=== PATIENT | male | born 1970 | race Caucasian/White ===

== ENCOUNTER 2020-01-24 18:50 | Emergency (ER) | payer MEDICARE, SELFPAY ==
[2020-01-24 18:51] VITALS: BP 140/98; PULSE 93; RESP 17; TEMP 36.7; O2SAT 98; BMI 19.2
--- NOTE | 2020-01-24 19:19 | HMH.EDUTC ---
[facility] [place] Clinical Impression: Urticaria Disposition: Home, Self-Care Condition on Discharge: Good Instructions: DI for Hives, Hives, DI for General Allergic Reactions Additional Instructions: Over the counter Benadryl may help with itching *GO home look around and see if anything has changed such as soaps, laundry detergent etc or what may be around your house that you may have got into that you could be having a reaction too Start taking oral steriods tomorrow Return if needed Follow up with family doctor in the next 48-72 hours or immediately if no improvement or any worsening of symptoms Straight to ER if any life threatening symptoms Prescriptions: methylPREDNISolone [Medrol 4mg tab] 4 mg PO DIRECTED #21 tab Transmission Status: Pending to [id number] Referrals: Selvin Tellez MD [Primary Care Provider] - As needed Time of Disposition: 19:39 Medical Decision Making - Shaun Inquiry Pt receiving controlled substance: No Shaun was queried for this patient: No Vital Signs: 01/24/20 18:51 Temperature 98.1 F Temperature Source Oral Pulse Rate [Radial] 93 H Respiratory Rate 17 Blood Pressure [Right Arm] 140/98 H Blood Pressure Mean [Right Arm] 112 Blood Pressure Source [Right Arm] Automatic Cuff Blood Pressure Position [Right Arm] Sitting 02 Sat by Pulse Oximetry 98 Oxygen Delivery Method Room Air Orders (Tests/Meds): ED MEDICATIONS Discontinued Medications Generic Name Dose Route Start Last Admin Trade Name Freq PRN Reason Stop Dose Admin Diphenhydramine HCl 25 mg 01/24/20 19:20 01/24/20 19:25 Benadryl 25mg Capsule PO 01/24/20 19:21 25 mg ONCE ONE Administration Loratadine 10 mg 01/24/20 19:21 01/24/20 19:26 Claritin 10mg Tablet PO 01/24/20 19:22 10 mg ONCE ONE Administration Methylprednisolone Sodium Succinate 125 mg 01/24/20 19:20 01/24/20 19:26 Solu-Medrol 125mg/2ml Vial IM 01/24/20 19:21 125 mg ONCE ONE Administration [facility] [place] - General Stated complaint: rash Time Seen by Provider: 01/24/20 19:19 Mode of Arrival: Ambulatory Source of Information: Patient Limitations: No Limitations Description of Symptoms (Recalled from Triage Doc. by RN): RASH ON SIDE HEENT Symptoms (Recalled from RN notes): No Resp Symptoms (Recalled from RN notes): No Skin Symptoms (Recalled from RN notes): Yes MS Symptoms (Recalled from RN notes): No Functional Status (Recalled from RN notes): WNL - History of Present Illness Provider Complaint: Patient states that he started breaking out in rash around his waistline and abdomen, chest, back and upper arms State that rash has continued to get worse State that he hasnt changed anything that he is aware of and unsure if he may have got into something that he is allergic too - Related Data Previous Rx's Medication Instructions Recorded methylPREDNISolone [Medrol 4mg 4 mg PO DIRECTED #21 tab 01/24/20 tab] Allergies Allergy/AdvReac Type Severity Reaction Status Date / Time No Known Allergies Allergy Verified 01/24/20 19:18 - Worker's Comp Is this a Worker's Comp case?: No [facility] History - Hepatitis A Screen Drug use history?: No High risk sexual behaviors?: No History of sexually transmitted infection?: No Currently employed?: No Childcare worker?: No Do you have indoor plumbing?: Yes Do you have electricity?: Yes Attestation statement:: This patient has been screened for Hepatitis A risk factors. I have reviewed the patient's past medical history: Yes - Social History Educational Level: Completed High School Smoking Status: Current every day smoker Tobacco Type: cigarettes # Packs/Day (cigarettes): 1 Alcohol Intake: never Occupational Status: other Housing: house ROS Obtained: Yes All systems reviewed & no additional complaints, Yes Systems reviewed as appropriate & no additional complaints - Integumentary/Breasts Skin/Breast: Reports rash Physical Exam
[2020-01-24 19:48] VITALS: BP 140/98; PULSE 93; RESP 17; TEMP 36.7; O2SAT 98
== END 2020-01-24 19:49 | disposition home or self-care (01) ==
PROVIDERS: Emergency Provider Nurse Practitioner; PCP Family Medicine
DX: L50.9 Urticaria, unspecified (principal); F17.210 Nicotine dependence, cigarettes, uncomplicated
CPT/HCPCS: 96372; 99201

== ENCOUNTER 2020-01-26 02:44 | Emergency (ER) | payer MEDICARE, SELFPAY ==
[2020-01-26 02:45] VITALS: BP 146/92; PULSE 102; RESP 16; TEMP 36.9; O2SAT 96; BMI 19.2
--- NOTE | 2020-01-26 02:47 | PC.NURSE ---
speaking with Dr. Bashir at [place].
--- NOTE | 2020-01-26 03:32 | HMH.EDPSYCH ---
ED Disposition Clinical Impression: Acute psychosis Disposition: Home, Self-Care Condition on Discharge: Good Prescriptions: Quetiapine Fumarate [Seroquel] 400 mg PO HS 30 Days #30 tab Transmission Status: Pending to [id number] Referrals: Selvin Tellez MD [Primary Care Provider] - - Critical Care Critical Care Time: No Attestation: On 01/26/20, the high probability of a clinically significant, sudden or life threatening deterioration of the following system(s) required my full and direct attention, intervention and personal management. The time I documented below is in addition to time spent performing reported procedures but includes the following listed in this critical care notation. Medical Decision Making - Medical Records Medical records reviewed: Yes: I reviewed the patient's medical records. - Shaun Inquiry Pt receiving controlled substance: No Vital Signs: 01/26/20 02:45 Temperature 98.4 F Temperature Source Oral Pulse Rate [Left Radial] 102 H Respiratory Rate 16 Blood Pressure [Right Arm] 146/92 H Blood Pressure Mean [Right Arm] 110 Blood Pressure Source [Right Arm] Automatic Cuff Blood Pressure Position [Right Arm] Sitting 02 Sat by Pulse Oximetry 96 Oxygen Delivery Method Room Air - Lab Data Lab results reviewed: Yes: I reviewed the patient's lab results. Orders (Tests/Meds): ED MEDICATIONS Discontinued Medications Generic Name Dose Route Start Last Admin Trade Name Kendrickq PRN Reason Stop Dose Admin Haloperidol Lactate 5 mg 01/26/20 03:03 01/26/20 03:05 Haldol 5mg/Ml Vial IM 01/26/20 03:04 5 mg ONCE ONE Administration Psych HPI - General Chief Complaint: Psychiatric Symptoms Stated Complaint: Mental brake down Time Seen by Provider: 01/26/20 03:00 Mode of Arrival: Ambulatory Source of Information: Patient Description of Symptoms (Recalled from ER Triage Doc. by RN): pt stated im having a mental break down when asked to further explain pt stated he believes his family is trying to poison him but doesnt know with what. pt denies any SI or HI or auditory or visual halluciations. pt denies any pain or discomfort at this time and is calm and cooperative on assessment. - History of Present Illness HPI Narrative: 49-year-old gentleman presents the ED with unusual complaints. He states he feels like his family has been poisoning him. He really does not know what they are given MRI and he has no acute symptoms of anything. Patient does have paranoid schizophrenia and has been off his medications.Patient denies any recent cough or shortness of breath, patient denies any sore throat or headache, patient denies any loss of taste or smell, patient denies any malaise or fatigue, patient denies any abdominal pain nausea vomiting or diarrhea. - Related Data Previous Rx's Medication Instructions Recorded methylPREDNISolone [Medrol 4mg 4 mg PO DIRECTED #21 tab 01/24/20 tab] Quetiapine Fumarate [Seroquel] 400 mg PO HS 30 Days #30 tab 01/26/20 Allergies Allergy/AdvReac Type Severity Reaction Status Date / Time No Known Allergies Allergy Verified 01/24/20 19:18 [facility] History - Hepatitis A Screen Drug use history?: No High risk sexual behaviors?: No History of sexually transmitted infection?: No Currently employed?: No Childcare worker?: No Do you have indoor plumbing?: Yes Do you have electricity?: Yes Attestation statement:: This patient has been screened for Hepatitis A risk factors. I have reviewed the patient's past medical history: Yes - Social History Smoking Status: Current every day smoker Tobacco Type: cigarettes # Packs/Day (cigarettes): 2 Alcohol Intake: never Substance Use Type: marijuana Last Used Substance: days (ago) Occupational Status: disabled Housing: house ROS Obtained: Yes All systems reviewed & no additional complaints - Constitutional Constitutional: Reports system reviewed and no additiona
--- NOTE | 2020-01-26 03:37 | PC.NURSE ---
pt complained of rash on extremities. 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
[2020-01-26 03:46] VITALS: BP 150/91; PULSE 103; RESP 16; TEMP 36.8; O2SAT 95
== END 2020-01-26 03:48 | disposition home or self-care (01) ==
PROVIDERS: Emergency Provider Emergency Medicine; PCP Family Medicine
DX: F23 Brief psychotic disorder (principal); F20.0 Paranoid schizophrenia; F12.10 Cannabis abuse, uncomplicated; F17.210 Nicotine dependence, cigarettes, uncomplicated
CPT/HCPCS: 96372; 99281

== ENCOUNTER 2023-11-25 07:10 | Outpatient (CLI) | payer MEDICARE, SELFPAY ==
--- NOTE | 2023-11-25 07:15 | CT_ITS ---
FINAL REPORT TECHNIQUE: Axial images were obtained from the lung apex to the mid abdomen by computed tomography. This study was performed with techniques to keep radiation doses as low as reasonably achievable (ALARA). Individualized dose reduction techniques using automated exposure control or adjustment of mA and/or kV according to the patient's size were employed. CLINICAL HISTORY: H/O TOBACCO USE smoker 4 ppd x 44 years FINDINGS: CHEST CT LOW DOSE CTDI vol (mGy): 2.90 DLP (mGy-cm): 121.16 There is mild bilateral axillary and mediastinal adenopathy. Individual nodes measure up to 10 mm in greatest dimension, nonspecific. The heart is normal in size. There is no pericardial or pleural effusion. There is mild atelectasis in the right middle lobe and lingula. There is a subtle density in the posterior right upper lobe measuring 6 mm best visualized on image 23 of series 4. There is linear scarring in the lingula. Limited images of the upper abdomen are unremarkable. IMPRESSION: Noncalcified right upper lobe density. Modifier S: Bilateral axillary and mediastinal adenopathy. Lung RADS category 3S. Recommend 6 month follow-up low-dose chest CT. Reviewed, Interpreted and Dictated by Manuel Tang MD Transcribed by Mariela Landrum Authenticated and [facility]
== END 2023-11-25 23:59 | disposition home or self-care (01) ==
LOC: RAD 07:11
PROVIDERS: PCP Family Medicine; Visit Provider Family Medicine
DX: Z87.891 Personal history of nicotine dependence (principal); Z12.2 Encounter for screening for malignant neoplasm of respiratory organs
CPT/HCPCS: 71271

== ENCOUNTER 2024-05-17 13:07 | Outpatient (CLI) | payer MEDICARE, MEDICAID, SELFPAY ==
--- NOTE | 2024-05-17 13:11 | CT_ITS ---
FINAL REPORT CLINICAL HISTORY: Right upper lobe nodule, follow-up COMPARISON: Low-dose chest CT dated 11/25/2023 FINDINGS: CT CHEST WITHOUT CONTRAST TECHNIQUE: Axial images through the chest were performed by computed tomography without contrast. This study was performed with techniques to keep radiation doses as low as reasonably achievable, (ALARA). Individualized dose reduction techniques using automated exposure control or adjustment of mA and/or kV according to the patient's size were employed. FINDINGS: There is no axillary adenopathy. There is no hilar or mediastinal adenopathy. The heart size is normal. There is no pericardial or pleural effusion. Previously seen nodule in the posterior right upper lobe measures 6 mm and appears stable compared to the prior exam. This is best seen on image 86 of series 3. There is biapical pleural and parenchymal scarring. Limited images of the upper abdomen are unremarkable. IMPRESSION: Stable 6 mm right upper lobe nodule. 12-month follow-up chest CT is recommended. Reviewed, Interpreted and Dictated by Manuel Tang MD Transcribed by Vanessa Rich Authenticated and [facility]
== END 2024-05-17 23:59 | disposition home or self-care (01) ==
LOC: RAD 13:08
PROVIDERS: PCP Family Medicine; Visit Provider Family Medicine
DX: R91.1 Solitary pulmonary nodule (principal)
CPT/HCPCS: 71250

== ENCOUNTER 2025-04-12 12:51 | Outpatient (CLI) | payer MEDICARE, OTHER, SELFPAY ==
--- NOTE | 2025-04-12 12:55 | CT_ITS ---
FINAL REPORT TECHNIQUE: Thin section axial images were obtained through the lungs using a low-dose technique per lung cancer screening protocol. Reconstruction images were obtained using the axial data. This study was performed with techniques to keep radiation doses as low as reasonably achievable, (ALARA). Individualized dose reduction techniques using automated exposure control or adjustment of mA and/or kV according to the patient's size were employed. CLINICAL HISTORY: HX OF TOBACCO current smoker 1ppd x20 years COMPARISON: 11/25/2023 FINDINGS: CTDLvol: 2.90 DLP: 108.12 Current smoker 20 pack year history Lungs: There is a new ground glass nodular opacity in the right lower lobe measuring 9 mm on series 4 image 49. A nodular density in the posterior right upper lobe on series 4 image 20 is unchanged from the prior lung cancer screening exam. The largest nodule within this measures 6 mm and was 6 mm. There is a new mixed density opacity measuring 10 x 8 mm on series 4 image 27. There is very mild emphysema. There is evidence of prior granulomatous disease. The previously seen bilateral axillary lymphadenopathy has nearly resolved. There is no mediastinal or hilar lymphadenopathy. There is no pleural pericardial effusion. Abdomen: There is a stable hypodense lesion in the liver. No acute abnormality. IMPRESSION: New mixed density slightly nodular opacity in the right upper lobe. Lung RADS: 4A Recommendation: Recommend 3-month follow-up chest CT or PET CT. Reviewed, Interpreted and Dictated by Francesca Anderson MD Transcribed by Amie Vickers Authenticated and [facility]
--- OUTSIDE RECORDS SUMMARY | 2025-04-12 12:57 | XMS_ITS | Clinical Summary ---
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 for anxiety 90 tablet 5 11/21/2024 Active nicotine (NICODERM CQ) 21 MG/24HR patchIndication s:Cigarette smoker Place 1 patch on the skin as directed by provider Daily. 28 each 5 11/21/2024 Active OLANZapine (zyPREXA) 15 MG tabletIndicatio ns:Mood disorder Take 1 tablet by mouth Every Night. 30 tablet 11 11/21/2024 Active Active Problems Problem Noted Date Diagnosed Date Pulmonary nodule 05/20/2024 Assessment & Plan (11/21/2024 2:43 PM EDT): Orders: CT Chest Low Dose Cancer Screening WO; Future Cigarette smoker 11/17/2022 Assessment & Plan (11/21/2024 2:43 PM EDT): Orders: nicotine (NICODERM CQ) 21 MG/24HR patch; Place 1 patch on the skin as directed by provider Daily. Bipolar disorder, in full re mission, most recent episode mixed 11/17/2022 Assessment & Plan (11/21/2024 2:43 PM EDT): Anxiety 11/17/2022 Assessment & Plan (11/21/2024 2:43 PM EDT): Orders: diazePAM (VALIUM) 10 MG tablet; Take 1 tablet by mouth Every 8 (Eight) Hours As Needed for Anxiety. 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 Benefit is greater than risk at present Immunizations Immunization Administration Dates Next Due Pneumococcal Conjugate 20-Valent (PCV20) 024 Tdap 06/24/2009 Family History Medical History Relation Name Comments Cancer Father Miguelito Zimmerman Esophageal cancer Father Miguelito Zimmerman Heart attack Mother Ursula granado aneurysm per wi fe Heart disease Mother Ursula granado Relation Name Status Comments Father Miguelito Zimmerman Mother Ursula granado Social History Tobacco Use Types Packs/Day Years Used Date Smoking Tobacco: Every Day Cigarettes 2 30 Smokeless Tobacco: Never Tobacco Cessation:Ready to Q uit: No Alcohol Use Standard Drinks/Week Comments Not Currently 0 (1 standard drink = 0.6 oz pur e alcohol) PHQ-2 Answer Date Recorded Retired PHQ-9: Brief Depression Severity Measure Score 0 11/17/2022 PHQ-2 Answer Date Recorded Patient Health Questionnaire-2 Score 0 11/21/2024 Sex and Gender Information Value Date Recorded Sex Assigned at Not on file Legal Sex Male 9:36 AM EDT Gender Identity Not on file Sexual Orientation Not on file Last Filed Vital Signs Vital Sign Reading Time Taken Comments Blood Pressure 140/80 11/21/2024 2:09 PM EDT Pulse 77 11/21/2024 2:09 PM EDT Temperature 36.6 C (97.8 F) 11/21/2024 2:09 PM EDT Respiratory Rate 20 11/21/2024 2:09 PM EDT Oxygen Saturation 98% 11/21/2024 2:09 PM EDT Inhaled Oxygen Concentration - - Weight 51.7 kg (114 lb) 11/21/2024 2:09 PM EDT Height 175.3 cm (5' 9 ) 11/21/2024 2:09 PM EDT Body Mass Index 16.83 11/21/2024 2:09 PM EDT Plan of Treatment Health Maintenance Due Date Last Done Comments COLON CANCER SCREENING 5 YEA R SIGMOIDOSCOPY [address] COLONOGRAPHY 2014 FECAL OCCULT BLOOD TEST 2014 FIT Testing (1 year) 2014 LUNG CANCER SCREENING 2019 ZOSTER VACCINE (1 of 2) 2019 TDAP/TD VACCINES (2 - Td or Tdap) 06/24/2019 009 HEPATITIS C SCREENING 03/21/2022 COLOGUARD 05/10/2024 05/10/2021 COLORECTAL CANCER SCREENING 05/10/2024 COVID-19 Vaccine (2023-2 5 season) 2025 INFLUENZA VACCINE 05/03/2025 ANNUAL WELLNESS VISIT 11/21/2025 11/21/2024 , 11/21/2024, 11/20/2023, Additional history exists Pneumococcal Vaccine 50+ Completed 11/20/2023 Insurance [facility] Care Teams 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
== END 2025-04-12 23:59 | disposition home or self-care (01) ==
LOC: RAD 12:53
PROVIDERS: PCP Family Medicine; Visit Provider Family Medicine
DX: R91.8 Other nonspecific abnormal finding of lung field (principal); R91.1 Solitary pulmonary nodule; Z87.891 Personal history of nicotine dependence; Z53.20 Procedure and treatment not carried out because of patient's decision for unspecified reasons
CPT/HCPCS: 71271

== ENCOUNTER 2025-07-12 12:26 | Outpatient (CLI) | payer MEDICARE, OTHER, SELFPAY ==
[2025-07-12 13:25] VITALS: PULSE 69; PULSE 72
[2025-07-12] MEDS: ALBUTEROL 0.083% 2.5 MG/3 ML NEB IH (13:25)
--- NOTE | 2025-07-12 14:30 | CT_ITS ---
FINAL REPORT TECHNIQUE: Axial images were obtained through the chest without contrast. Sagittal and coronal multiplanar reconstructions were obtained. This study was performed with techniques to keep radiation doses as low as reasonably achievable (ALARA). Individualized dose reduction techniques using automated exposure control or adjustment of mA and/or kV according to the patient's size were employed. CLINICAL HISTORY: nodule COMPARISON: LDCT 04/12/2025 FINDINGS: CT CHEST WITHOUT CONTRAST No mass or adenopathy are identified. There is a low-attenuation mass measuring 1.6 cm in size in the left lobe of the liver that likely represents a benign hepatic cyst. There is a nodule in the posterior right upper lobe, 6 mm in size, best seen on image #69 of series 3. This nodule appears somewhat more nodular and less linear than was seen on the prior exam. There is an opacity in the peripheral right upper lobe measuring 8 mm in size, best seen on image #86 of series 3, which appears slightly more prominent. The right lower lobe ground glass opacities noted on the prior exam have essentially resolved. Mild changes of centrilobular emphysema are again noted. No pleural or pericardial effusions are identified. IMPRESSION: Right lower lobe ground glass opacities have resolved since prior exam. There are 2 right upper lobe nodules which appear more nodular and less linear than seen on the prior exam, finding of uncertain significance. Due to size these would be difficult to sample. Recommend follow-up CT without contrast in 1 to 3 months for further evaluation. Reviewed, Interpreted and Dictated by Manuel Tang MD Transcribed by Elly Baca Authenticated and . [facility]
== END 2025-07-12 23:59 | disposition home or self-care (01) ==
LOC: RT 12:27
PROVIDERS: PCP Family Medicine; Visit Provider Internal Medicine Pulmonary Disease
DX: J44.9 Chronic obstructive pulmonary disease, unspecified (principal); R91.8 Other nonspecific abnormal finding of lung field; R91.1 Solitary pulmonary nodule; R94.2 Abnormal results of pulmonary function studies
CPT/HCPCS: 71250; 94060; 94618; 94640; 94726; 94729